=== PATIENT | female | born 1990 ===

== ENCOUNTER 2025-01-27 08:38 | Emergency (ER) | payer SELFPAY ==
[~2025-01-27] VITALS: Ht 160 cm; Wt 59.0 kg
[2025-01-27] MEDS ORDERED: NARCAN4 M1 (11:05)
== END 2025-01-27 11:25 | disposition home or self-care (01) ==
LOC: ER 08:38
DX: T50.901A Poisoning by unspecified drugs, medicaments and biological substances, accidental (unintentional), initial encounter (principal)
CPT/HCPCS: 99284